=== PATIENT | female | born 1990 | race African-American/Black ===

== ENCOUNTER 2017-03-11 16:07 | Inpatient (IN) ==
[2017-03-11] MEDS ORDERED: REGLAN PO ONE (16:12)
[2017-03-11] MEDS ORDERED: KEFZOL 1 GM/D5W 1 GM/50 ML IVPB IV PRN (16:12)
[2017-03-11] MEDS ORDERED: PITOCIN 30 UNITS/LR 30 UNITS/500 ML IV.SOLN IV SCH (16:12)
[2017-03-11] MEDS ORDERED: LR 500 ML IV ONE (16:12)
[2017-03-11] MEDS ORDERED: STADOL IV PRN ×3 (16:12→21:05)
[2017-03-11] MEDS ORDERED: PEPCID IV PRN (16:12)
[2017-03-11] MEDS ORDERED: TYLENOL PO PRN (16:12)
[2017-03-11] MEDS ORDERED: PEPCID PO PRN (16:12)
[2017-03-11] MEDS ORDERED: ZOFRAN IV PRN (16:12)
[2017-03-11] MEDS ORDERED: PEPCID PO ONE (16:12)
[2017-03-11] MEDS ORDERED: SODIUM CHLORIDE 0.9% INJ SCH (16:15)
[2017-03-11] MEDS ORDERED: AMPICILLIN 2 GM/NS 2 GM/100 ML IVPB IV ONE (16:17)
[2017-03-11] MEDS: LR 1,000 ML IV SCH (17:00)
[2017-03-11 17:02] LABS: MANUAL DIFF NEEDED? NO
[2017-03-11 17:05] LABS: BASO% 0.3 % (0.0-0.8); EOS# 0.09 X1000 (0.0-0.7); EOS% 0.6 % (0.0-10.0); HEMATOCRIT 34.8 % (37.0-47.0); HEMOGLOBIN 11.5 g/dL (12.0-16.0); IMM GRAN# 0.34 X1000 (0.0-0.04); IMM GRAN% 2.3 % (0.0-0.5); LYMPH# 1.52 X1000 (1.2-3.4); LYMPH% 10.2 % (20.5-51.1); MCH 26.6 PG (27-31); MCV 80.4 FL (81-99); MONO# 1.27 X1000 (0.11-0.59); MONO% 8.5 % (1.7-9.3); MPV 9.5 FL (7.4-10.4); NEUT% 78.1 % (42.2-75.2); PLT 294 X1000 (130-400); RBC 4.33 XMIL (4.2-5.4)
[2017-03-11 18:01] LABS: URINE SOURCE VOIDED
[2017-03-11 18:05] LABS: UR AMPHETAMINES QUAL NONE DETECTED (NONE DETECT); UR BARBITUATES QUAL NONE DETECTED (NONE DETECT); UR BENZODIAZEPIN QUAL NONE DETECTED (NONE DETECT); UR CANNABINOIDS QUAL NONE DETECTED (NONE DETECT); UR COCAINE QUAL NONE DETECTED (NONE DETECT); UR MDMA QUAL NONE DETECTED (NONE DETECT); UR METHADONE QUAL NONE DETECTED (NONE DETECT); UR METHAMPHETAMINE QUAL NONE DETECTED (NONE DETECT); UR OPIATES QUAL NONE DETECTED (NONE DETECT); UR OXYCODONE QUAL NONE DETECTED (NONE DETECT); UR PCP QUAL NONE DETECTED (NONE DETECT); UR TCA QUAL NONE DETECTED (NONE DETECT)
[2017-03-11 18:08] LABS: BILIRUBIN URINE NEGATIVE (NEGATIVE); BLOOD URINE 1+ (NEGATIVE); CLARITY SL. CLOUDY (CLEAR); COLOR YELLOW; GLUCOSE URINE NEGATIVE (NEGATIVE); LEUKOCYTES URINE 1+ (NEGATIVE); NITRITE URINE NEGATIVE (NEGATIVE); PH URINE 6.5; PROTEIN URINE NEGATIVE (NEGATIVE); SP GRAVITY URINE 1.005; UROBILINOGEN URINE NORMAL
[2017-03-11] MEDS ORDERED: XYLOCAINE-MPF 1% INJ ONE ×2 (19:00→22:15)
[2017-03-11] MEDS ORDERED: SODIUM CHLORIDE 0.9% INJ PRN (19:00)
[2017-03-11] MEDS ORDERED: MINERAL OIL TOP ONE ×2 (19:00→22:15)
[2017-03-11] MEDS ORDERED: PHENERGAN IV PRN (19:00)
[2017-03-11] MEDS: AMPICILLIN 1 GM/NS 1 GM/50 ML IVPB IV SCH (21:30)
[2017-03-12] MEDS: AMPICILLIN 1 GM/NS 1 GM/50 ML IVPB IV SCH ×5 (02:00→13:14)
[2017-03-12] MEDS: LR 1,000 ML IV SCH ×2 (05:58→09:09)
[2017-03-12] MEDS ORDERED: FENTANYL-BUPIV-NS 2 MCG-0.1% 200 ML EPIDURAL SCH (06:00)
[2017-03-12] MEDS ORDERED: XYLOCAINE-MPF 1% INJ ONE (06:55)
[2017-03-12] MEDS ORDERED: MARCAINE 0.25% PF ONE (11:11)
[2017-03-12] MEDS ORDERED: NORCO-5 PO PRN (14:02)
[2017-03-12] MEDS ORDERED: PITOCIN IM PRN (14:02)
[2017-03-12] MEDS ORDERED: CYTOTEC PO PRN (14:02)
[2017-03-12] MEDS ORDERED: MINERAL OIL PO PRN (14:02)
[2017-03-12] MEDS ORDERED: BENADRYL IV PRN (14:02)
[2017-03-12] MEDS ORDERED: HYDROXYZINE IM PRN (14:02)
[2017-03-12] MEDS ORDERED: HYDROXYZINE PO PRN (14:02)
[2017-03-12] MEDS ORDERED: BOOSTRIX VACCINE IM ONE (14:02)
[2017-03-12] MEDS ORDERED: XYLOCAINE-MPF 1% INJ PRN (14:02)
[2017-03-12] MEDS ORDERED: PITOCIN 30 UNITS/LR 30 UNITS/500 ML IV.SOLN IV ONE (14:02)
[2017-03-12] MEDS ORDERED: AMBIEN PO PRN (14:02)
[2017-03-12] MEDS ORDERED: M-M-R II VACCINE SUBQ ONE (14:02)
[2017-03-12] MEDS ORDERED: BENADRYL PO PRN (14:02)
[2017-03-12] MEDS ORDERED: PERI MEDS (DERMOPLAST/NUPERCAINAL/TUCKS) MISC PRN (14:02)
[2017-03-12] MEDS ORDERED: PITOCIN 20 UNITS/LR 20 UNITS/1,000 ML IV.SOLN IV SCH (14:02)
[2017-03-12] MEDS: MOTRIN PO PRN (15:21)
[2017-03-12] MEDS: NORCO-10 PO PRN ×2 (15:22→22:05)
[2017-03-13] MEDS: MOTRIN PO PRN (03:28)
[2017-03-13] MEDS: PERICOLACE PO SCH (03:42)
[2017-03-13 06:25] LABS: MANUAL DIFF NEEDED? NO
[2017-03-13 06:34] LABS: BASO% 0.1 % (0.0-0.8); EOS# 0.12 X1000 (0.0-0.7); EOS% 0.8 % (0.0-10.0); HEMATOCRIT 30.2 % (37.0-47.0); HEMOGLOBIN 9.6 g/dL (12.0-16.0); IMM GRAN# 0.21 X1000 (0.0-0.04); IMM GRAN% 1.5 % (0.0-0.5); LYMPH# 2.16 X1000 (1.2-3.4); LYMPH% 15.1 % (20.5-51.1); MCH 26.2 PG (27-31); MCHC 31.8 g/dL (33-37); MCV 82.5 FL (81-99); MONO# 1.64 X1000 (0.11-0.59); MONO% 11.5 % (1.7-9.3); MPV 9.9 FL (7.4-10.4); PLT 278 X1000 (130-400); RBC 3.66 XMIL (4.2-5.4)
[2017-03-13] MEDS: PRECARE PO SCH (09:00)
[2017-03-14] MEDS: MOTRIN PO PRN (00:07)
[2017-03-14] MEDS: PERICOLACE PO SCH (01:12)
[2017-03-14 07:32] VITALS: BP 100/68
[2017-03-14] MEDS: PRECARE PO SCH (09:05)
== END 2017-03-14 12:05 | disposition home or self-care (01) ==
LOC: P.LD 16:07
PROVIDERS: ADMIT Obstetrics & Gynecology; ATTEND Obstetrics & Gynecology

== ENCOUNTER 2018-11-17 17:39 | Inpatient (IN) ==
[2018-11-17] MEDS ORDERED: TYLENOL PO PRN (17:43)
[2018-11-17] MEDS ORDERED: AMPICILLIN 2 GM/NS 2 GM/100 ML IVPB IV ONE (17:43)
[2018-11-17] MEDS ORDERED: KEFZOL 1 GM/D5W 1 GM/50 ML IVPB IV PRN (17:43)
[2018-11-17] MEDS ORDERED: ZOFRAN IV PRN (17:43)
[2018-11-17] MEDS ORDERED: PEPCID IV PRN (17:43)
[2018-11-17] MEDS ORDERED: PEPCID PO ONE (17:43)
[2018-11-17] MEDS ORDERED: REGLAN PO ONE (17:43)
[2018-11-17] MEDS ORDERED: BRETHINE SUBQ PRN (17:43)
[2018-11-17] MEDS ORDERED: STADOL IV PRN ×3 (17:43)
[2018-11-17] MEDS ORDERED: PEPCID PO PRN (17:43)
[2018-11-17 18:26] LABS: URINE SOURCE VOIDED
[2018-11-17 18:28] LABS: BASO# 0.03 X1000 (0.0-0.2); BASO% 0.2 % (0.0-0.8); EOS# 0.08 X1000 (0.0-0.7); EOS% 0.6 % (0.0-10.0); HEMOGLOBIN 10.2 g/dL (12.0-16.0); IMM GRAN# 0.28 X1000 (0.0-0.04); LYMPH% 10.6 % (20.5-51.1); MCH 25.4 PG (27-31); MCHC 32.9 g/dL (33-37); MCV 77.3 FL (81-99); MONO# 1.25 X1000 (0.11-0.59); MONO% 8.8 % (1.7-9.3); MPV 9.6 FL (7.4-10.4); NEUT# 11.06 X1000 (1.4-6.5); NEUT% 77.8 % (42.2-75.2); PLT 316 X1000 (130-400); RBC 4.01 XMIL (4.2-5.4); RDW 14.9 % (11.5-14.5)
[2018-11-17 18:39] LABS: BILIRUBIN URINE NEGATIVE (NEGATIVE); BLOOD URINE NEGATIVE (NEGATIVE); GLUCOSE URINE NEGATIVE (NEGATIVE); KETONE URINE NEGATIVE (NEGATIVE); LEUKOCYTES URINE 2+ (NEGATIVE); NITRITE URINE NEGATIVE (NEGATIVE); PROTEIN URINE NEGATIVE (NEGATIVE); SP GRAVITY URINE 1.005; UROBILINOGEN URINE NORMAL
[2018-11-17 18:40] LABS: CLARITY SL. CLOUDY (CLEAR); COLOR YELLOW
[2018-11-17 18:44] LABS: UR AMPHETAMINES QUAL NONE DETECTED (NONE DETECT); UR BARBITUATES QUAL NONE DETECTED (NONE DETECT); UR BENZODIAZEPIN QUAL NONE DETECTED (NONE DETECT); UR CANNABINOIDS QUAL NONE DETECTED (NONE DETECT); UR COCAINE QUAL NONE DETECTED (NONE DETECT); UR METHADONE QUAL NONE DETECTED (NONE DETECT); UR METHAMPHETAMINE QUAL NONE DETECTED (NONE DETECT); UR OPIATES QUAL NONE DETECTED (NONE DETECT); UR OXYCODONE QUAL NONE DETECTED (NONE DETECT); UR PCP QUAL NONE DETECTED (NONE DETECT); UR PROPOXYPHENE QUAL NONE DETECTED (NONE DETECT); UR TCA QUAL NONE DETECTED (NONE DETECT)
[2018-11-17] MEDS: LR 1,000 ML IV ONE (19:02)
[2018-11-17] MEDS ORDERED: CYTOTEC PO ONE (20:00)
[2018-11-17] MEDS: AMBIEN PO PRN (20:25)
[2018-11-17] MEDS ORDERED: XYLOCAINE-MPF 1% INJ ONE (22:08)
[2018-11-17] MEDS ORDERED: MINERAL OIL MISC ONE (22:08)
[2018-11-17] MEDS: AMPICILLIN 1 GM/NS 1 GM/50 ML IVPB IV SCH (23:08)
[2018-11-18] MEDS ORDERED: NAROPIN 0.2% INJ ONE (00:04)
[2018-11-18] MEDS ORDERED: FENTANYL-BUPIV-NS 2 MCG-0.1% 200 ML EPIDURAL SCH (00:15)
[2018-11-18] MEDS ORDERED: PITOCIN 30 UNITS/NS 30 UNIT/500 ML IV.SOLN IV SCH ×3 (00:15→08:00)
[2018-11-18] MEDS: LR 1,000 ML IV ONE (00:34)
[2018-11-18] MEDS: AMPICILLIN 1 GM/NS 1 GM/50 ML IVPB IV SCH (03:11)
--- NOTE | 2018-11-18 04:10 | OB/GYN PROGRESS NOTE ---
Progress Note OB - . OB Progress Note: Vital Signs - 24 hr 11/17/18 19:37 11/18/18 00:00 Temperature 97.0 F L 97.5 F L Pulse Rate 88 81 Respiratory Rate 18 18 Blood Pressure 121/65 121/80 Laboratory Results - last 24 hr 11/17/18 11/17/18 11/17/18 17:50 17:50 18:10 WBC RBC Hgb Hct MCV MCH MCHC RDW Std Deviation Plt Count MPV Immature Gran % (Auto) Neut % (Auto) Lymph % (Auto) [place] % (Auto) Eos % (Auto) Baso % (Auto) Immature Gran # (Auto) Neut # (Auto) Lymph # (Auto) [place] # (Auto) Eos # (Auto) Baso # (Auto) Urine Source VOIDED Urine Color YELLOW Urine Clarity SL. CLOUDY A Urine pH 7.0 Ur Specific [place] 1.005 Urine Protein NEGATIVE Urine Ketones NEGATIVE Urine Blood NEGATIVE Urine Nitrite NEGATIVE Urine Bilirubin NEGATIVE Urine Urobilinogen NORMAL Urine WBC 2+ A Urine Glucose NEGATIVE Urine Opiates Screen NONE DETECTED Ur Oxycodone Screen NONE DETECTED Urine Methadone Screen NONE DETECTED U Propoxyphene Qual NONE DETECTED Ur Barbituates Screen NONE DETECTED Ur Tricyclics Screen NONE DETECTED Ur Phencyclidine Scrn NONE DETECTED Ur Amphetamines Screen NONE DETECTED U Methamphetamines Scrn NONE DETECTED U Benzodiazepines Scrn NONE DETECTED Urine Cocaine Screen NONE DETECTED U Cannabinoids Screen NONE DETECTED RPR NON-REACTIVE 11/17/18 18:10 WBC 14.20 H RBC 4.01 L Hgb 10.2 L Hct 31.0 L MCV 77.3 L MCH 25.4 L MCHC 32.9 L RDW Std Deviation 14.9 H Plt Count 316 MPV 9.6 Immature Gran % (Auto) 2.0 H Neut % (Auto) 77.8 H Lymph % (Auto) 10.6 L [place] % (Auto) 8.8 Eos % (Auto) 0.6 Baso % (Auto) 0.2 Immature Gran # (Auto) 0.28 H Neut # (Auto) 11.06 H Lymph # (Auto) 1.50 [place] # (Auto) 1.25 H Eos # (Auto) 0.08 Baso # (Auto) 0.03 Urine Source Urine Color Urine Clarity Urine pH Ur Specific [place] Urine Protein Urine Ketones Urine Blood Urine Nitrite Urine Bilirubin Urine Urobilinogen Urine WBC Urine Glucose Urine Opiates Screen Ur Oxycodone Screen Urine Methadone Screen U Propoxyphene Qual Ur Barbituates Screen Ur Tricyclics Screen Ur Phencyclidine Scrn Ur Amphetamines Screen U Methamphetamines Scrn U Benzodiazepines Scrn Urine Cocaine Screen U Cannabinoids Screen RPR Came to room. Pt had some bleeding and there were also 2 late decels on the monitor. The pt was given O2. FHTs reactive. Her SVE at that time was 8/90/0. Pt is comfortable with her epidural. She is feeling some pressure. SVE 10/100/0 AROM moderate meconium FHTs: 130s Reactive TOCO: ctxs q 2 minutes Will do a trial push now
[2018-11-18] MEDS ORDERED: PITOCIN IM PRN (04:13)
[2018-11-18] MEDS ORDERED: BENADRYL IV PRN (04:13)
[2018-11-18] MEDS ORDERED: BENADRYL PO PRN (04:13)
[2018-11-18] MEDS ORDERED: PERI MEDS (DERMOPLAST/NUPERCAINAL/TUCKS) MISC PRN (04:13)
[2018-11-18] MEDS ORDERED: MINERAL OIL PO PRN (04:13)
[2018-11-18] MEDS ORDERED: CYTOTEC PO PRN (04:13)
[2018-11-18] MEDS ORDERED: HYDROXYZINE IM PRN (04:13)
[2018-11-18] MEDS ORDERED: BOOSTRIX VACCINE IM ONE (04:13)
[2018-11-18] MEDS ORDERED: AMBIEN PO PRN (04:13)
[2018-11-18] MEDS ORDERED: M-M-R II VACCINE SUBQ ONE (04:13)
[2018-11-18] MEDS ORDERED: XYLOCAINE-MPF 1% INJ PRN (04:13)
[2018-11-18] MEDS ORDERED: PITOCIN 20 UNITS/NS 20 UNITS/1,000 ML IV.SOLN IV SCH (04:15)
[2018-11-18] MEDS: CYTOTEC PO SCH (05:01)
--- NOTE | 2018-11-18 14:17 | OPERATIVE NOTE ---
PROCEDURE DATE : 11/18/2018 PREOPERATIVE DIAGNOSIS: GBS positive, HSV 2, and grand multiparity. POSTOPERATIVE DIAGNOSIS: GBS positive, HSV 2, and grand multiparity, delivered. PROCEDURE Normal spontaneous vaginal delivery. SURGEON: Ramiro Tabares ANESTHESIA: Epidural. ESTIMATED BLOOD LOSS: 200 mL. COMPLICATIONS: None. INDICATIONS FOR PROCEDURE: The patient presented on November 17 for an induction of labor. Upon presentation her cervix was 2, 50 and minus 3. She received one dose of Cytotec and her labor progressed. She received an epidural and was started on Pitocin and her labor continued to progress without difficulty. DESCRIPTION OF PROCEDURE: The was on the perineum. The infant was delivered in cephalic presentation without difficulty. There was a nuchal cord x 1. The was bulb suctioned upon delivery. The cord was clamped and cut and the infant was handed off to awaiting nursery staff. The was delivered at 0400, weight was 7 pounds 12 ounces, 9 and 10. The placenta was removed spontaneously. There were no vaginal lacerations. Both mom and baby are stable post delivery. cc: Tanner Betancourt III, MD
[2018-11-18] MEDS: MOTRIN PO PRN (14:48)
[2018-11-18] MEDS: NORCO-5 PO PRN ×2 (15:32→20:39)
[2018-11-18] MEDS: PERICOLACE PO SCH (20:39)
[2018-11-19] MEDS: MOTRIN PO PRN ×3 (03:30→21:01)
[2018-11-19] MEDS: ATARAX PO PRN (03:30)
[2018-11-19] MEDS: NORCO-5 PO PRN ×2 (03:30→12:35)
[2018-11-19 07:23] LABS: BASO# 0.04 X1000 (0.0-0.2); BASO% 0.2 % (0.0-0.8); EOS# 0.24 X1000 (0.0-0.7); EOS% 1.5 % (0.0-10.0); HEMATOCRIT 26.9 % (37.0-47.0); HEMOGLOBIN 8.5 g/dL (12.0-16.0); IMM GRAN# 0.26 X1000 (0.0-0.04); IMM GRAN% 1.6 % (0.0-0.5); LYMPH% 19.3 % (20.5-51.1); MCH 24.9 PG (27-31); MCHC 31.6 g/dL (33-37); MCV 78.9 FL (81-99); MONO# 1.54 X1000 (0.11-0.59); MONO% 9.6 % (1.7-9.3); MPV 10.1 FL (7.4-10.4); NEUT# 10.89 X1000 (1.4-6.5); NEUT% 67.8 % (42.2-75.2); PLT 263 X1000 (130-400); RBC 3.41 XMIL (4.2-5.4); RDW 14.9 % (11.5-14.5); WBC 16.07 X1000 (4.8-10.8)
[2018-11-19] MEDS: FERROUS SULFATE PO SCH (09:42)
[2018-11-19] MEDS: AMBIEN PO PRN (21:01)
[2018-11-19] MEDS: PERICOLACE PO SCH (21:01)
[2018-11-20] MEDS: ATARAX PO PRN (00:43)
--- NOTE | 2018-11-20 08:25 | DISCHARGE SUMMARY ---
ADMISSION DATE: 11/17/2018 DISCHARGE DATE: 11/20/2018 ADMISSION DIAGNOSIS: A 28-year-old, 6, para 4, at 39 weeks gestation for induction of labor. FINAL DIAGNOSIS: A 28-year-old, 6, para 4, at 39 weeks gestation for induction of labor with spontaneous vaginal delivery of a female infant, 7 pounds 12 ounces, with Apgars of 9 and 10 at 0400 on 11/18/2018. PROCEDURES: Spontaneous vaginal delivery. BRIEF HISTORY: The patient is a 28-year-old, G 6, P 4, at 39 weeks gestation by a 16 week ultrasound scan. The patient has a history of prior delivery and had been on [place] during this . Group B strep culture was positive. Also, she had anemia and a history of herpes simplex virus 2, abnormal quad screen that was evaluated by the [facility]/ [facility] in [place]. REVIEW OF SYSTEMS: Unremarkable. PAST MEDICAL HISTORY: Significant for HSV 2, anemia. PAST SURGICAL HISTORY: None. ALLERGIES: No known drug allergies. MEDICATIONS: vitamins. FAMILY HISTORY: Noncontributory. SOCIAL HISTORY: No tobacco, alcohol, or drug use. PHYSICAL EXAMINATION: Vital Signs: Afebrile. Vital signs stable. General: Alert and oriented x3. CV: Regular rate and rhythm. Lungs: Clear to auscultation bilaterally. Abdomen: Gravid, nontender. Extremities: No clubbing, cyanosis, or edema noted. Sterile Speculum Examination: No lesions were noted. The patient had a vaginal exam of 2, 50, -3. ASSESSMENT AND PLAN: Intrauterine at 39 weeks, for induction of labor. The patient was started on Cytotec and then progressed through the evening. On 11/18/2018, she was in active labor and had spontaneous vaginal delivery of a female infant, 7 pounds 12 ounces, with Apgars of 9 and 10 at 0400 on 11/18/2018 over an intact perineum. There was a nuchal cord x1 that was reduced. care unremarkable. The patient had stable vital signs. Her hemoglobin was 8.5 and hematocrit was 26.9. On day #2, she was ambulating, eating, with mild lochia noted. It was felt at this time that she could be discharged home. DISCHARGE PLANS: The patient will be discharged home. She will follow up in 4 weeks to schedule bilateral tubal ligation. She is instructed on pelvic rest for the next 6 weeks. DISCHARGE MEDICATIONS: [place] 5, Colace, Motrin, and iron. cc: Tanner Betancourt III, MD
[2018-11-20] MEDS: FERROUS SULFATE PO SCH (10:04)
[2018-11-20] MEDS: MOTRIN PO PRN (10:04)
[2018-11-20 13:49] VITALS: BP 147/78
== END 2018-11-20 11:05 | disposition home or self-care (01) | DRG 806 ==
LOC: P.LD 17:39
PROVIDERS: ADMIT Obstetrics & Gynecology; ATTEND Obstetrics & Gynecology
CPT/HCPCS: 59025; 80104; 80301; 80305; 81003; 85025; 86592; A9270; G0431; G0434; G0477; J0290; J0595; J2405; J2590; J7120